=== PATIENT | male | born 1985 | race Caucasian/White ===

== ENCOUNTER 2019-06-29 21:29 | Emergency (ER) | payer SELFPAY ==
[2019-06-30] MEDS ORDERED: ZANTAC150 MG PO (02:41)
[2019-06-30] MEDS ORDERED: ACETAMINOPHEN500 MG PO (02:42)
[2019-06-30] MEDS ORDERED: PERCOCET 5-3251 EACH PO (05:40)
[2019-06-30] MEDS ORDERED: PREDNISONE20 MG PO (05:40)
[2019-06-30] MEDS ORDERED: CRUTCH1 EACH (05:42)
== END 2019-06-29 22:47 | disposition left against medical advice (07) ==
LOC: ED 21:29
DX: Z53.21 Procedure and treatment not carried out due to patient leaving prior to being seen by health care provider (principal)

== ENCOUNTER 2019-06-30 01:59 | Emergency (ER) | payer OTHER ==
[~2019-06-30] VITALS: Ht 180.3 cm; Wt 86.2 kg
--- OUTSIDE RECORDS SUMMARY | 2019-06-30 02:02 | XMS ---
PreManage Notification: MIGUEL SINGH Security [employer] Events No recent Security Events currently on file CRITERIA MET - [facility] - 2 Visits in 30 Days CARE PROVIDERS There are no care providers on record at this time. Cole has no Care Guidelines for this patient. Dne VISIT COUNT (12 MO.) 2 [facility] Danielson H. TOTAL 2 NOTE: Visits indicate total known visits. ED/C VISIT TRACKING (12 MO.) 06/30/2019 01:[address] [facility] [place] TYPE: Emergency COMPLAINT: - R HIP PAIN 06/29/2019 21:30 [facility] TYPE: Emergency COMPLAINT: - R HIP PAIN INPATIENT VISIT TRACKING (12 MO.) No inpatient visits to display in this time frame [email or web address]
[2019-06-30] MEDS ORDERED: ZANTAC150 MG PO (02:41)
[2019-06-30] MEDS ORDERED: ACETAMINOPHEN500 MG PO (02:42)
[2019-06-30] MEDS ORDERED: PREDNISONE20 MG PO (05:40)
[2019-06-30] MEDS ORDERED: PERCOCET 5-3251 EACH PO (05:40)
[2019-06-30] MEDS ORDERED: CRUTCH1 EACH (05:42)
== END 2019-06-30 06:15 | disposition home or self-care (01) ==
LOC: ED 01:59
DX: M87.9 Osteonecrosis, unspecified (principal); M87.88 Other osteonecrosis, other site; Z88.1 Allergy status to other antibiotic agents
CPT/HCPCS: 73700; 96372; 99283-25; J1885